=== PATIENT | female | born 1960 | race Caucasian/White ===

== ENCOUNTER → 2017-03-26 | Outpatient (CLI) | payer OTHER ==
--- NOTE | 2017-03-26 13:09 | KCIC ---
MR of the left knee HISTORY: Left knee pain medially. Prior knee surgery. Twisting injury a few weeks ago COMPARISON: Not available FINDINGS: Degenerative tear of the medial meniscus with distortion. Medial subluxation of the meniscus out of the joint and towards the coronary recess Minimal blunting of the lateral meniscus at the free margin, convincingly seen on only a single slice. This could be postsurgical but otherwise consider a possible very small tear. Anterior and posterior cruciate ligaments are intact. Medial collateral ligament is intact. Iliotibial band unremarkable. Fibular collateral ligament, biceps femoris tendon and popliteus tendon are intact. Extensor mechanism is intact. Small joint effusion. No evidence of osteochondral loose body. Severe chondromalacia of the medial compartment. Minimal subchondral marrow edema. Small subchondral defect identified at the weightbearing medial femoral condyle, slightly towards its posterior aspect measuring 7 mm wide by 15 mm AP by 3 mm deep. This has a chronic appearance. Areas of severe cartilage loss of the lateral joint compartment particularly posteriorly. Moderate to severe patellofemoral chondromalacia. No bone lesion. No acute fracture. Small Amaro's cyst. Mild lateral patellar tilt and subluxation. IMPRESSION: 1. Degenerative tear of the medial meniscus 2. Minimal blunting of the lateral meniscus could indicate prior surgery or possibly a very small tear. 3. Severe primary osteoarthritis 4. Chronic appearing osteochondral defect at medial femoral condyle. The appearance is most compatible with an old subchondral fracture or stress injury, or less likely an old area of osteonecrosis. Electronically signed by: Anmol Capone MD (03/26/2017 1:06 PM)
== END | disposition home or self-care (01) ==
LOC: KCIC MRI 11:55
PROVIDERS: ATTEND Physician Assistant Surgical
DX: S83.242A Other tear of medial meniscus, current injury, left knee, initial encounter (principal); M17.12 Unilateral primary osteoarthritis, left knee; M71.22 Synovial cyst of popliteal space [Baker], left knee; M94.262 Chondromalacia, left knee; X58.XXXA Exposure to other specified factors, initial encounter; Y93.89 Activity, other specified; Y92.89 Other specified places as the place of occurrence of the external cause; Y99.8 Other external cause status
CPT/HCPCS: 73721

== ENCOUNTER → 2017-09-05 | Outpatient (CLI) | payer BC ==
--- NOTE | 2017-09-08 13:33 | SLEEP ---
DATE OF STUDY: 09/05/2017 ATTENDING PHYSICIAN: Dr. Kranthi Sidhu. The patient is 57 years old who weighs 163 pounds with a BMI of 29. The patient's [place] score was 10. The patient underwent sleep study at [facility]. This was a diagnostic study. During the night study, the patient spent 415 minutes in bed and slept for 391 minutes with a sleep efficiency of 94%. Sleep latency was 5 minutes with a REM latency of 71 minutes. Overall, sleep architecture showed normal stage 1 sleep, increased stage 2 sleep, normal slow wave and reduced REM sleep. During the night study, the patient had 6 obstructive apneas, no central or mixed apneas. There were 25 hypopneas. The patient's apnea above the index was 5 per hour, supine index 7 per hour with a REM index of 13 per hour. EKG monitoring revealed no sustained arrhythmias. Average heart rate was 70 beats per minute. Nocturnal oximetry reveals only 1.5% of time, oxygen saturation remained between 80% and 89% with a mean saturation of 98%. PLMs were not seen. Due to low AHI, the patient did not meet the split night criteria for CPAP initiation. IMPRESSION: 1. Mild sleep apnea-hypopnea syndrome at an apnea-hypopnea index of 5 per hour. 2. No clinically significant nocturnal hypoxia. 3. No clinically significant periodic limb movements. RECOMMENDATIONS: 1. The patient did not meet the split night criteria for CPAP initiation due to low AHI. 2. The patient has mild sleep apnea. It can be initially treated with weight loss. 3. If the patient's symptoms persist, then consider treatment with either oral appliance or trial of CPAP. 4. Avoid [employer] depressants. 5. Caution regarding driving until symptoms of sleep apnea have resolved with above recommendations. INDER MILLARD MD DR: LIBIA/reynaldo JOB#: [id number] / [id number] Brad Alaniz MD MTDD
== END | disposition home or self-care (01) ==
LOC: SLPLAB 18:21
PROVIDERS: ATTEND Family Medicine
DX: G47.10 Hypersomnia, unspecified (principal)
CPT/HCPCS: 95810